=== PATIENT | male | born 1965 | race Caucasian/White ===

== ENCOUNTER 2016-08-21 14:47 | Inpatient (IN) | payer MEDICARE, MEDICAID ==
[~2016-08-21] VITALS: Ht 167.6 cm; Wt 97.6 kg
[~2016-08-21 14:47] MED LIST: DIVA500T35 PO; FLUO-191 PO; QUET200T PO
[2016-08-21 15:23] VITALS: BP 124/91
[2016-08-21] MEDS ORDERED: ZOLPIDEM TARTRATE 10 MG TABLET PO PRN (15:30)
[2016-08-21] MEDS ORDERED: HALOPERIDOL 5 MG TABLET PO PRN (15:30)
[2016-08-21] MEDS ORDERED: LORazepam 2 MG/ML VIAL IM ONE (16:00)
[2016-08-21] MEDS ORDERED: DiphenhydrAMINE HCL 50 MG/ML VIAL IM ONE (16:00)
[2016-08-21] MEDS ORDERED: INFLUENZA VIRUS VACCINE QVS 2016-17 (3YR+)/PF 60 MCG/0.5 ML SYRINGE IM ONE (16:00)
[2016-08-21] MEDS ORDERED: HALOPERIDOL LACTATE 5 MG/ML VIAL IM ONE (16:00)
[2016-08-21] MEDS ORDERED: CLON1 PO (16:05)
[2016-08-21] MEDS ORDERED: QUET100T PO (16:05)
[2016-08-21] MEDS ORDERED: QUET300T2 PO (16:05)
[2016-08-21] MEDS ORDERED: HALO5 PO (16:05)
[2016-08-21] MEDS ORDERED: BENZ1TAB10 PO (16:05)
[2016-08-21] MEDS ORDERED: DIVA500T35 PO (16:05)
[2016-08-21 16:30] VITALS: BP 106/70
[2016-08-21] MEDS: BENZTROPINE MESYLATE 1 MG TABLET PO SCH (17:00)
[2016-08-21] MEDS: DIVALPROEX SODIUM 500 MG DR TABLET PO SCH (17:00)
[2016-08-21] MEDS: QUEtiapine FUMARATE 200 MG TABLET PO SCH (17:00)
[2016-08-21] MEDS: HALOPERIDOL 5 MG TABLET PO SCH (21:51)
[2016-08-21] MEDS: ClonazePAM 1 MG TABLET PO SCH (21:51)
[2016-08-21] MEDS: QUEtiapine FUMARATE 300 MG TABLET PO SCH (21:51)
[2016-08-22 03:03] VITALS: BP 109/72
[2016-08-22 08:31] LABS: BASOPHILS % (AUTO) 0.7 % (0.0-2.0); EOSINOPHILS % (AUTO) 3.3 % (1.0-6.0); HEMATOCRIT 44.8 % (41-53); HEMOGLOBIN 14.7 g/dL (13.5-17.5); LYMPHOCYTES # (AUTO) 2.2 K/uL (1.0-4.8); LYMPHOCYTES % (AUTO) 39.1 % (22.0-44.0); MEAN CORPUSCULAR HEMOGLOBIN 29.8 pg (26.0-34.0); MEAN CORPUSCULAR HGB CONC 32.8 G/dL (31.0-37.0); MEAN CORPUSCULAR VOLUME 91 fL (80-100); MONOCYTES # (AUTO) 0.8 K/uL (0.1-1.0); MONOCYTES % (AUTO) 13.6 % (2.0-9.0); NEUTROPHILS # (AUTO) 2.4 K/uL (1.8-7.7); NEUTROPHILS % (AUTO) 43.3 % (40.0-70.0); PLATELET COUNT (AUTO) 273 K/uL (150-450); RED BLOOD CELL COUNT(AUTO) 4.94 MIL/uL (4.50-5.90); RED CELL DISTRIBUTION WIDTH 12.8 % (11.5-14.5); WHITE BLOOD COUNT (AUTO) 5.6 K/uL (4.5-11.0)
[2016-08-22] MEDS: DIVALPROEX SODIUM 500 MG DR TABLET PO SCH ×2 (08:35→16:20)
[2016-08-22] MEDS: QUEtiapine FUMARATE 200 MG TABLET PO SCH ×2 (08:35→16:20)
[2016-08-22] MEDS: BENZTROPINE MESYLATE 1 MG TABLET PO SCH ×2 (08:35→16:20)
[2016-08-22 08:42] VITALS: BP 103/64
[2016-08-22 08:55] LABS: ALANINE AMINOTRANSFERASE 39 U/L (12-78); ALBUMIN 3.5 g/dL (3.4-5.0); ANION GAP 10 mmol/L (8-16); ASPARTATE AMINOTRANSFERASE 24 U/L (15-37); BILIRUBIN,TOTAL 0.4 mg/dL (0.1-1.0); CALCIUM, TOTAL 8.5 mg/dL (8.8-10.5); CARBON DIOXIDE 25 mmol/L (22-29); CHLORIDE 107 mmol/L (98-107); CREATININE 1.01 mg/dL (0.60-1.30); GLOMERULAR FILTR. RATE CALC > 60 mL/min (>60); POTASSIUM 4.1 mmol/L (3.5-5.1); SODIUM SERUM 142 mmol/L (136-145); TOTAL PROTEIN, SERUM 6.7 g/dL (6.4-8.2); UREA NITROGEN, BLOOD 16 mg/dL (7-18)
[2016-08-22] MEDS ORDERED: MAGNESIUM HYDROXIDE SUSPENSION 30 ML UDCUP PO PRN (09:00)
[2016-08-22] MEDS ORDERED: LOPERAMIDE HCL 2 MG CAPSULE PO PRN (09:00)
[2016-08-22] MEDS ORDERED: ONDANSETRON HCL 4 MG TABLET PO PRN (09:00)
[2016-08-22] MEDS ORDERED: PETROLATUM,WHITE 71 GM JELLY TP PRN (09:00)
[2016-08-22] MEDS ORDERED: ALBUTEROL SULFATE HFA 90 MCG/PUFF 8 GM INHALER IH PRN (09:00)
[2016-08-22] MEDS ORDERED: BACITRACIN 28.4 GM OINTMENT TP PRN (09:00)
[2016-08-22] MEDS ORDERED: CloNIDine HCL 0.1 MG TABLET PO PRN (09:00)
[2016-08-22] MEDS ORDERED: BENZOCAINE/MENTHOL LOZENGE MM PRN (09:00)
[2016-08-22] MEDS ORDERED: MAG HYDROX/AL HYDROX/SIMETH ES 30 ML SUSPENSION UDCUP PO PRN (09:00)
[2016-08-22] MEDS ORDERED: ACETAMINOPHEN 325 MG TABLET PO PRN (09:00)
[2016-08-22 16:00] VITALS: BP 108/64
[2016-08-22] MEDS: QUEtiapine FUMARATE 300 MG TABLET PO SCH (20:26)
[2016-08-22] MEDS: ClonazePAM 1 MG TABLET PO SCH (20:26)
[2016-08-22] MEDS: HALOPERIDOL 5 MG TABLET PO SCH (20:27)
[2016-08-23 06:25] VITALS: BP 121/68
[2016-08-23 08:34] VITALS: BP 124/65
[2016-08-23] MEDS: BENZTROPINE MESYLATE 1 MG TABLET PO SCH ×2 (08:34→16:30)
[2016-08-23] MEDS: QUEtiapine FUMARATE 200 MG TABLET PO SCH ×2 (08:34→16:30)
[2016-08-23] MEDS: DIVALPROEX SODIUM 500 MG DR TABLET PO SCH ×2 (08:36→16:30)
[2016-08-23 16:00] VITALS: BP 115/75
[2016-08-23] MEDS: IBUPROFEN 600 MG TABLET PO PRN (19:06)
[2016-08-23] MEDS: HALOPERIDOL 5 MG TABLET PO SCH (21:02)
[2016-08-23] MEDS: QUEtiapine FUMARATE 300 MG TABLET PO SCH (21:03)
[2016-08-23] MEDS: ClonazePAM 1 MG TABLET PO SCH (21:03)
[2016-08-24 02:20] VITALS: BP 120/75
[2016-08-24 08:02] VITALS: BP 119/71
[2016-08-24] MEDS: QUEtiapine FUMARATE 200 MG TABLET PO SCH ×2 (09:08→16:08)
[2016-08-24] MEDS: BENZTROPINE MESYLATE 1 MG TABLET PO SCH ×2 (09:08→16:07)
[2016-08-24] MEDS: DIVALPROEX SODIUM 500 MG DR TABLET PO SCH ×2 (09:09→16:08)
[2016-08-24] MEDS: IBUPROFEN 600 MG TABLET PO PRN (12:00)
[2016-08-24 16:07] VITALS: BP 117/78
[2016-08-24] MEDS ORDERED: QUET100T33 PO (17:39)
[2016-08-24] MEDS ORDERED: QUET200T PO (17:42)
[2016-08-24] MEDS: ClonazePAM 1 MG TABLET PO SCH (20:07)
[2016-08-24] MEDS: HALOPERIDOL 5 MG TABLET PO SCH (20:07)
[2016-08-24] MEDS: QUEtiapine FUMARATE 300 MG TABLET PO SCH (20:07)
== END 2016-08-24 21:16 | disposition home or self-care (01) | DRG 885 ==
LOC: B2S 15:38 → EDSTATUS 15:44
PROVIDERS: ADMIT Psychiatry & Neurology Psychiatry; ATTEND Psychiatry & Neurology Psychiatry
DX: F20.0 Paranoid schizophrenia (principal); R45.851 Suicidal ideations; I10 Essential (primary) hypertension; J44.9 Chronic obstructive pulmonary disease, unspecified; M19.90 Unspecified osteoarthritis, unspecified site; K21.9 Gastro-esophageal reflux disease without esophagitis; E66.9 Obesity, unspecified; F17.210 Nicotine dependence, cigarettes, uncomplicated; G47.00 Insomnia, unspecified; F12.90 Cannabis use, unspecified, uncomplicated; Z71.6 Tobacco abuse counseling; Z98.890 Other specified postprocedural states; Z72.89 Other problems related to lifestyle; Z28.21 Immunization not carried out because of patient refusal; Z68.34 Body mass index [BMI] 34.0-34.9, adult; Z79.899 Other long term (current) drug therapy
CPT/HCPCS: 90471; J1200; J1630; J2060; Q0162

== ENCOUNTER 2018-08-24 00:01 | Emergency (ER) | payer MEDICARE, MEDICAID ==
[~2018-08-24] VITALS: Ht 167.6 cm; Wt 98.2 kg
[2018-08-24] MEDS ORDERED: QUET25TA PO (00:24)
[2018-08-24] MEDS ORDERED: MORPHINE SULFATE 4 MG/ML SYRINGE IVP ONE (02:00)
[2018-08-24] MEDS ORDERED: FentaNYL CITRATE-PF 100 MCG/2 ML VIAL IVP ONE (02:15)
[2018-08-24] MEDS ORDERED: MIDAZOLAM HCL 5 MG/ML VIAL IVP ONE (02:15)
[2018-08-24] MEDS ORDERED: SODIUM CHLORIDE 0.9% 1,000 ML IV ONE (02:16)
[2018-08-24 04:05] VITALS: BP 143/91
== END 2018-08-24 04:20 | disposition home or self-care (01) ==
LOC: EMS 00:03
DX: S63.253A Unspecified dislocation of left middle finger, initial encounter (principal); S63.255A Unspecified dislocation of left ring finger, initial encounter; F31.9 Bipolar disorder, unspecified; F20.9 Schizophrenia, unspecified; F17.210 Nicotine dependence, cigarettes, uncomplicated; Z79.899 Other long term (current) drug therapy; W01.0XXA Fall on same level from slipping, tripping and stumbling without subsequent striking against object, initial encounter; Y93.89 Activity, other specified; Y92.89 Other specified places as the place of occurrence of the external cause; Y99.8 Other external cause status
CPT/HCPCS: 26770; 73130; 93005; 99152; 99153; 99285; J2250; J3010; J7030

== ENCOUNTER 2018-11-28 23:44 | Emergency (ER) | payer MEDICARE, MEDICAID ==
[~2018-11-28] VITALS: Ht 170.2 cm; Wt 90.9 kg
[~2018-11-28 23:44] MED LIST changes: -DIVA500T35 PO; -FLUO-191 PO; -QUET200T PO; +QUET25TA PO
[2018-11-29 01:55] LABS: GLUCOSE,POINT OF CARE 97 MG/DL (70-110)
[2018-11-29 02:51] LABS: ANION GAP 12 mmol/L (8-16); CALCIUM, TOTAL 9.3 mg/dL (8.8-10.5); CARBON DIOXIDE 25 mmol/L (22-29); CHLORIDE 103 mmol/L (98-107); CREATININE 1.16 mg/dL (0.60-1.30); GLOMERULAR FILTR. RATE CALC > 60 mL/min (>60); GLUCOSE,RANDOM 92 mg/dL (70-110); POTASSIUM 3.6 mmol/L (3.5-5.1); SODIUM SERUM 140 mmol/L (136-145); UREA NITROGEN, BLOOD 15 mg/dL (7-18)
[2018-11-29 02:58] LABS: ALANINE AMINOTRANSFERASE 27 U/L (12-78); ALBUMIN 3.8 g/dL (3.4-5.0); ALKALINE PHOSPHATASE 61 U/L (46-116); ASPARTATE AMINOTRANSFERASE 25 U/L (15-37); BILIRUBIN,TOTAL 0.5 mg/dL (0.1-1.0); TOTAL PROTEIN, SERUM 7.3 g/dL (6.4-8.2)
[2018-11-29 03:00] LABS: BASOPHILS % (AUTO) 0.7 % (0.0-2.0); EOSINOPHILS % (AUTO) 2.2 % (1.0-6.0); HEMATOCRIT 39.9 % (41-53); HEMOGLOBIN 13.6 g/dL (13.5-17.5); LYMPHOCYTES # (AUTO) 1.6 K/uL (1.0-4.8); LYMPHOCYTES % (AUTO) 28.2 % (22.0-44.0); MEAN CORPUSCULAR VOLUME 88 fL (80-100); MONOCYTES # (AUTO) 1.2 K/uL (0.1-1.0); MONOCYTES % (AUTO) 21.6 % (2.0-9.0); NEUTROPHILS # (AUTO) 2.6 K/uL (1.8-7.7); NEUTROPHILS % (AUTO) 47.3 % (40.0-70.0); PLATELET COUNT (AUTO) 331 K/uL (150-450); RED BLOOD CELL COUNT(AUTO) 4.52 MIL/uL (4.50-5.90); RED CELL DISTRIBUTION WIDTH 13.7 % (11.5-14.5)
[2018-11-29] MEDS ORDERED: SODIUM CHLORIDE 0.9% 1,000 ML IV ONE (04:00)
[2018-11-29 04:46] VITALS: BP 132/82
== END 2018-11-29 05:50 | disposition home or self-care (01) ==
LOC: EMS 23:47
DX: R41.82 Altered mental status, unspecified (principal); F25.9 Schizoaffective disorder, unspecified; F15.10 Other stimulant abuse, uncomplicated; F31.9 Bipolar disorder, unspecified; F17.210 Nicotine dependence, cigarettes, uncomplicated
CPT/HCPCS: 36415; 70450; 80053; 82140; 82962; 85025; 96360; 99284; G0480; J7030; 51701

== ENCOUNTER 2018-12-13 11:31 | Inpatient (IN) | payer MEDICARE, MEDICAID ==
[~2018-12-13] VITALS: Ht 170.2 cm; Wt 75.0 kg
[2018-12-13] MEDS ORDERED: DIPH25TA2 PO (11:43)
[2018-12-13] MEDS ORDERED: SLEEPING PO (12:09)
[2018-12-13] MEDS ORDERED: PHENAZOPYRIDINE HCL 100 MG TABLET PO ONE (12:45)
[2018-12-13 13:20] LABS: BASOPHILS % (AUTO) 0.2 % (0.0-2.0); EOSINOPHILS % (AUTO) 0.1 % (1.0-6.0); HEMATOCRIT 43.6 % (41-53); HEMOGLOBIN 14.7 g/dL (13.5-17.5); LYMPHOCYTES # (AUTO) 0.7 K/uL (1.0-4.8); LYMPHOCYTES % (AUTO) 3.5 % (22.0-44.0); MEAN CORPUSCULAR HEMOGLOBIN 29.8 pg (26.0-34.0); MEAN CORPUSCULAR HGB CONC 33.7 G/dL (31.0-37.0); MEAN CORPUSCULAR VOLUME 88 fL (80-100); MONOCYTES # (AUTO) 2.2 K/uL (0.1-1.0); MONOCYTES % (AUTO) 11.1 % (2.0-9.0); NEUTROPHILS # (AUTO) 16.7 K/uL (1.8-7.7); NEUTROPHILS % (AUTO) 85.1 % (40.0-70.0); PLATELET COUNT (AUTO) 273 K/uL (150-450); RED BLOOD CELL COUNT(AUTO) 4.94 MIL/uL (4.50-5.90); RED CELL DISTRIBUTION WIDTH 13.4 % (11.5-14.5)
[2018-12-13 13:21] LABS: APPEARANCE,URINE CLOUDY (CLEAR); GLUCOSE, URINE (UA) NEGATIVE (NEGATIVE); KETONES,URINE 15 mg/dL (NEGATIVE); LEUKOCYTE ESTERASE ,URINE LARGE (NEGATIVE); NITRATE,URINE POSITIVE (NEGATIVE); OCCULT BLOOD,URINE LARGE (NEGATIVE); PH,URINE 6.5 (5.0-8.0); PROTEIN,URINE SEE CONFIRM (NEGATIVE)
[2018-12-13 13:22] LABS: BILIRUBIN,URINE PRELIM. POSITIVE (NEGATIVE)
[2018-12-13 13:30] LABS: SULFOSALICYLIC ACID,URINE 1+ (Negative)
[2018-12-13 13:31] LABS: BACTERIA,URINE Many /HPF (None Seen); RBC,URINE 26-50 /HPF (0-2); SQUAMOUS EPITHELIAL CELL,UR Many /LPF (None Seen); WBC,URINE 51-100 /HPF (0-5)
[2018-12-13 13:34] LABS: CALCIUM, TOTAL 9.6 mg/dL (8.8-10.5); CREATININE 1.31 mg/dL (0.60-1.30)
[2018-12-13 13:42] LABS: ALBUMIN 3.7 g/dL (3.4-5.0); BILIRUBIN,TOTAL 0.6 mg/dL (0.1-1.0); TOTAL PROTEIN, SERUM 7.9 g/dL (6.4-8.2)
[2018-12-13] MEDS ORDERED: SODIUM CHLORIDE 0.9% 2,250 ML IV ONE (14:00)
[2018-12-13] MEDS ORDERED: CefTRIAXone 1 GM/DEXTROSE 50 ML IV ONE (14:00)
[2018-12-13] MEDS ORDERED: 0.9% SODIUM CHLORIDE 10 ML SYRINGE IVP PRN (14:15)
[2018-12-13] MEDS ORDERED: ACETAMINOPHEN 325 MG TABLET PO PRN (14:15)
[2018-12-13] MEDS ORDERED: MAGNESIUM HYDROXIDE SUSPENSION 30 ML UDCUP PO PRN (14:15)
[2018-12-13] MEDS ORDERED: ONDANSETRON HCL 4 MG/2 ML VIAL IVP PRN (14:15)
[2018-12-13 15:00] LABS: LACTIC ACID 2.4 mmol/L (0.4-2.0)
[2018-12-13] MEDS ORDERED: ACETAMINOPHEN 500 MG TABLET PO ONE (15:30)
[2018-12-13 16:59] VITALS: BP 124/74
[2018-12-13 19:37] VITALS: BP 139/75
[2018-12-13] MEDS: DOCUSATE SODIUM 100 MG CAPSULE PO SCH (20:03)
[2018-12-14] VITALS (7 sets, daily range): BP systolic 101–117; BP diastolic 55–77
[2018-12-14] MEDS: ACETAMINOPHEN 325 MG TABLET PO PRN ×4 (00:32→20:59)
[2018-12-14 06:08] LABS: BASOPHILS % (AUTO) 0.2 % (0.0-2.0); EOSINOPHILS % (AUTO) 0.2 % (1.0-6.0); HEMATOCRIT 42.2 % (41-53); HEMOGLOBIN 13.9 g/dL (13.5-17.5); LYMPHOCYTES # (AUTO) 1.4 K/uL (1.0-4.8); LYMPHOCYTES % (AUTO) 7.7 % (22.0-44.0); MEAN CORPUSCULAR HEMOGLOBIN 29.4 pg (26.0-34.0); MEAN CORPUSCULAR HGB CONC 32.9 G/dL (31.0-37.0); MEAN CORPUSCULAR VOLUME 89 fL (80-100); MONOCYTES # (AUTO) 2.1 K/uL (0.1-1.0); MONOCYTES % (AUTO) 11.6 % (2.0-9.0); NEUTROPHILS # (AUTO) 14.6 K/uL (1.8-7.7); NEUTROPHILS % (AUTO) 80.3 % (40.0-70.0); PLATELET COUNT (AUTO) 248 K/uL (150-450); RED BLOOD CELL COUNT(AUTO) 4.72 MIL/uL (4.50-5.90); RED CELL DISTRIBUTION WIDTH 13.6 % (11.5-14.5)
[2018-12-14 06:37] LABS: ALANINE AMINOTRANSFERASE 17 U/L (12-78); ALBUMIN 3.1 g/dL (3.4-5.0); ALKALINE PHOSPHATASE 70 U/L (46-116); ANION GAP 13 mmol/L (8-16); ASPARTATE AMINOTRANSFERASE 10 U/L (15-37); BILIRUBIN,TOTAL 0.7 mg/dL (0.1-1.0); CALCIUM, TOTAL 9.2 mg/dL (8.8-10.5); CARBON DIOXIDE 24 mmol/L (22-29); CHLORIDE 101 mmol/L (98-107); CREATININE 1.09 mg/dL (0.60-1.30); GLOMERULAR FILTR. RATE CALC > 60 mL/min (>60); GLUCOSE,RANDOM 76 mg/dL (70-110); POTASSIUM 3.4 mmol/L (3.5-5.1); SODIUM SERUM 138 mmol/L (136-145); UREA NITROGEN, BLOOD 9 mg/dL (7-18)
[2018-12-14] MEDS: DOCUSATE SODIUM 100 MG CAPSULE PO SCH ×2 (08:18→20:58)
[2018-12-14] MEDS ORDERED: POTASSIUM CHLORIDE 20 MEQ ER TABLET PO PRN (10:00)
[2018-12-14] MEDS ORDERED: POTASSIUM CHL 10 MEQ/WATER 50 ML IV PRN (10:00)
[2018-12-14] MEDS ORDERED: SODIUM CHLORIDE 0.9% 1,000 ML IV ONE (10:00)
[2018-12-14] MEDS: CefTRIAXone 1 GM/DEXTROSE 50 ML IV SCH (14:44)
[2018-12-14 19:54] LABS: APPEARANCE,URINE CLEAR (CLEAR); BILIRUBIN,URINE NEGATIVE (NEGATIVE); GLUCOSE, URINE (UA) NEGATIVE (NEGATIVE); KETONES,URINE NEGATIVE (NEGATIVE); LEUKOCYTE ESTERASE ,URINE NEGATIVE (NEGATIVE); NITRATE,URINE NEGATIVE (NEGATIVE); OCCULT BLOOD,URINE NEGATIVE (NEGATIVE); PROTEIN,URINE TRACE (NEGATIVE)
[2018-12-15] MEDS: ACETAMINOPHEN 325 MG TABLET PO PRN ×2 (00:25→20:28)
[2018-12-15 04:25] VITALS: BP 106/79
[2018-12-15 06:19] LABS: BASOPHILS % (AUTO) 0.2 % (0.0-2.0); EOSINOPHILS % (AUTO) 0.8 % (1.0-6.0); HEMATOCRIT 39.7 % (41-53); HEMOGLOBIN 13.2 g/dL (13.5-17.5); LYMPHOCYTES # (AUTO) 1.4 K/uL (1.0-4.8); LYMPHOCYTES % (AUTO) 9.3 % (22.0-44.0); MEAN CORPUSCULAR HEMOGLOBIN 29.4 pg (26.0-34.0); MEAN CORPUSCULAR HGB CONC 33.2 G/dL (31.0-37.0); MEAN CORPUSCULAR VOLUME 89 fL (80-100); MONOCYTES # (AUTO) 2.9 K/uL (0.1-1.0); MONOCYTES % (AUTO) 19.5 % (2.0-9.0); NEUTROPHILS # (AUTO) 10.4 K/uL (1.8-7.7); NEUTROPHILS % (AUTO) 70.2 % (40.0-70.0); PLATELET COUNT (AUTO) 240 K/uL (150-450); RED BLOOD CELL COUNT(AUTO) 4.48 MIL/uL (4.50-5.90); RED CELL DISTRIBUTION WIDTH 13.3 % (11.5-14.5)
[2018-12-15 06:25] LABS: ANION GAP 10 mmol/L (8-16); CALCIUM, TOTAL 9.2 mg/dL (8.8-10.5); CARBON DIOXIDE 30 mmol/L (22-29); CHLORIDE 102 mmol/L (98-107); CREATININE 1.09 mg/dL (0.60-1.30); GLOMERULAR FILTR. RATE CALC > 60 mL/min (>60); GLUCOSE,RANDOM 105 mg/dL (70-110); SODIUM SERUM 142 mmol/L (136-145); UREA NITROGEN, BLOOD 9 mg/dL (7-18)
[2018-12-15 08:00] VITALS: BP 99/54
[2018-12-15] MEDS: DOCUSATE SODIUM 100 MG CAPSULE PO SCH ×2 (08:01→20:28)
[2018-12-15] MEDS ORDERED: SODIUM CHLORIDE 0.9% 1,000 ML IV ONE (11:15)
[2018-12-15 11:35] VITALS: BP 95/55
[2018-12-15] MEDS: CefTRIAXone 1 GM/DEXTROSE 50 ML IV SCH (14:44)
[2018-12-15 15:59] VITALS: BP 109/64
[2018-12-15 19:35] VITALS: BP 117/69
[2018-12-15] MEDS ORDERED: ZOLPIDEM TARTRATE 10 MG TABLET PO PRN (22:00)
[2018-12-16 04:15] VITALS: BP 137/91
[2018-12-16 06:34] LABS: BASOPHILS % (AUTO) 0.6 % (0.0-2.0); EOSINOPHILS % (AUTO) 0.9 % (1.0-6.0); HEMATOCRIT 39.6 % (41-53); HEMOGLOBIN 13.2 g/dL (13.5-17.5); LYMPHOCYTES # (AUTO) 0.6 K/uL (1.0-4.8); LYMPHOCYTES % (AUTO) 8.1 % (22.0-44.0); MEAN CORPUSCULAR HEMOGLOBIN 29.5 pg (26.0-34.0); MEAN CORPUSCULAR HGB CONC 33.3 G/dL (31.0-37.0); MEAN CORPUSCULAR VOLUME 89 fL (80-100); MONOCYTES # (AUTO) 1.6 K/uL (0.1-1.0); NEUTROPHILS # (AUTO) 5.5 K/uL (1.8-7.7); NEUTROPHILS % (AUTO) 70.4 % (40.0-70.0); PLATELET COUNT (AUTO) 259 K/uL (150-450); RED BLOOD CELL COUNT(AUTO) 4.47 MIL/uL (4.50-5.90); RED CELL DISTRIBUTION WIDTH 13.1 % (11.5-14.5)
[2018-12-16 06:48] LABS: ANION GAP 12 mmol/L (8-16); CALCIUM, TOTAL 9.1 mg/dL (8.8-10.5); CARBON DIOXIDE 24 mmol/L (22-29); CHLORIDE 104 mmol/L (98-107); GLOMERULAR FILTR. RATE CALC > 60 mL/min (>60); GLUCOSE,RANDOM 93 mg/dL (70-110); POTASSIUM 3.8 mmol/L (3.5-5.1); SODIUM SERUM 140 mmol/L (136-145); UREA NITROGEN, BLOOD 9 mg/dL (7-18)
[2018-12-16] MEDS: DOCUSATE SODIUM 100 MG CAPSULE PO SCH (07:47)
[2018-12-16 07:57] VITALS: BP 117/78
[2018-12-16] MEDS ORDERED: CIPR-278 PO (10:11)
== END 2018-12-16 12:38 | disposition home or self-care (01) | DRG 872 ==
LOC: EMS 11:32 → 4E 15:26
PROVIDERS: ADMIT Internal Medicine; ATTEND Internal Medicine
DX: A41.51 Sepsis due to Escherichia coli [E. coli] (principal); N39.0 Urinary tract infection, site not specified; B96.20 Unspecified Escherichia coli [E. coli] as the cause of diseases classified elsewhere; F20.9 Schizophrenia, unspecified; F32.9 Major depressive disorder, single episode, unspecified; R00.0 Tachycardia, unspecified; F17.210 Nicotine dependence, cigarettes, uncomplicated; E87.6 Hypokalemia; Z79.899 Other long term (current) drug therapy
CPT/HCPCS: 83605; 84132; 87040; 87086; G0378; J0696; J7030

== ENCOUNTER 2019-02-13 23:25 | Emergency (ER) | payer MEDICARE, MEDICAID ==
[~2019-02-13] VITALS: Ht 182.9 cm; Wt 90.9 kg
[~2019-02-13 23:25] MED LIST changes: +CIPR-278 PO
[2019-02-13] MEDS ORDERED: OMEP20 PO (23:45)
[2019-02-13] MEDS ORDERED: BENZ2TAB10 PO (23:45)
[2019-02-13] MEDS ORDERED: DIVA-78 PO (23:45)
[2019-02-13] MEDS ORDERED: QUET300T2 PO (23:45)
[2019-02-13] MEDS ORDERED: PROP10TA73 PO (23:45)
[2019-02-13 23:51] LABS: BASOPHILS % (AUTO) 0.6 % (0.0-2.0); EOSINOPHILS % (AUTO) 2.3 % (1.0-6.0); HEMATOCRIT 38.2 % (41-53); LYMPHOCYTES # (AUTO) 1.2 K/uL (1.0-4.8); LYMPHOCYTES % (AUTO) 18.8 % (22.0-44.0); MEAN CORPUSCULAR HEMOGLOBIN 29.8 pg (26.0-34.0); MEAN CORPUSCULAR HGB CONC 34.1 G/dL (31.0-37.0); MEAN CORPUSCULAR VOLUME 88 fL (80-100); MONOCYTES # (AUTO) 0.8 K/uL (0.1-1.0); MONOCYTES % (AUTO) 13.2 % (2.0-9.0); NEUTROPHILS # (AUTO) 4.1 K/uL (1.8-7.7); NEUTROPHILS % (AUTO) 65.1 % (40.0-70.0); PLATELET COUNT (AUTO) 264 K/uL (150-450); RED BLOOD CELL COUNT(AUTO) 4.36 MIL/uL (4.50-5.90); RED CELL DISTRIBUTION WIDTH 13.8 % (11.5-14.5)
[2019-02-13 23:59] LABS: ANION GAP 9 mmol/L (8-16); CALCIUM, TOTAL 9.1 mg/dL (8.8-10.5); CARBON DIOXIDE 26 mmol/L (22-29); CHLORIDE 104 mmol/L (98-107); CREATININE 0.98 mg/dL (0.60-1.30); GLOMERULAR FILTR. RATE CALC > 60 mL/min (>60); GLUCOSE,RANDOM 96 mg/dL (70-110); POTASSIUM 3.8 mmol/L (3.5-5.1); SODIUM SERUM 139 mmol/L (136-145); UREA NITROGEN, BLOOD 10 mg/dL (7-18)
[2019-02-14 00:05] LABS: ALANINE AMINOTRANSFERASE 20 U/L (12-78); ALBUMIN 3.6 g/dL (3.4-5.0); ALKALINE PHOSPHATASE 61 U/L (46-116); ASPARTATE AMINOTRANSFERASE 14 U/L (15-37); BILIRUBIN,TOTAL 0.5 mg/dL (0.1-1.0); TOTAL PROTEIN, SERUM 6.8 g/dL (6.4-8.2); VALPROIC ACID 73 mcg/mL (50-100)
[2019-02-14 05:12] VITALS: BP 96/56
== END 2019-02-14 05:55 | disposition home or self-care (01) ==
LOC: EMS 23:29
DX: T43.591A Poisoning by other antipsychotics and neuroleptics, accidental (unintentional), initial encounter (principal); F31.9 Bipolar disorder, unspecified; F20.9 Schizophrenia, unspecified; F17.210 Nicotine dependence, cigarettes, uncomplicated; Z79.899 Other long term (current) drug therapy; Y92.89 Other specified places as the place of occurrence of the external cause
CPT/HCPCS: 36415; 70450; 80053; 80164; 84484; 85025; 93005; 99284; 99406; G0480

== ENCOUNTER 2019-12-15 19:11 | Emergency (ER) | payer MEDICARE, MEDICAID ==
[~2019-12-15] VITALS: Ht 167.6 cm; Wt 86.4 kg
[~2019-12-15 19:11] MED LIST changes: -CIPR-278 PO; +PROP10TA73 PO; +QUET200T PO; -QUET25TA PO
[2019-12-15] MEDS ORDERED: MORPHINE SULFATE 4 MG/ML SYRINGE IM ONE (20:45)
[2019-12-15] MEDS ORDERED: KETOROLAC TROMETHAMINE 30 MG/ML VIAL IM ONE (20:45)
[2019-12-15 23:00] VITALS: BP 116/77
== END 2019-12-15 23:01 | disposition home or self-care (01) ==
LOC: EMS 19:13
DX: S42.211A Unspecified displaced fracture of surgical neck of right humerus, initial encounter for closed fracture (principal); F31.9 Bipolar disorder, unspecified; F20.9 Schizophrenia, unspecified; F17.210 Nicotine dependence, cigarettes, uncomplicated; W01.0XXA Fall on same level from slipping, tripping and stumbling without subsequent striking against object, initial encounter; Y93.89 Activity, other specified; Y92.89 Other specified places as the place of occurrence of the external cause; Y99.8 Other external cause status
CPT/HCPCS: 73030; 73060; 73110; 73200; 96372; 99284; J1885; J2270

== ENCOUNTER 2020-05-12 17:12 | Emergency (ER) | payer MEDICAID, MEDICARE ==
[~2020-05-12] VITALS: Ht 172.7 cm; Wt 84.1 kg
[2020-05-12 17:26] VITALS: BP 149/89
== END 2020-05-12 18:35 | disposition left against medical advice (07) ==
LOC: EMS 17:12
DX: R50.9 Fever, unspecified (principal); R05 Cough; Z53.21 Procedure and treatment not carried out due to patient leaving prior to being seen by health care provider

== ENCOUNTER 2021-11-21 18:14 | Inpatient (IN) | payer MEDICARE, OTHER ==
[~2021-11-21] VITALS: Ht 167.6 cm; Wt 102.2 kg
[2021-11-21] MEDS ORDERED: NALOXONE HCL 1 MG/ML 2 ML SYRINGE IVP ONE ×2 (18:30→19:00)
[2021-11-21 18:53] LABS: COVID AG,FIA SOURCE NASOPHARYNGEAL
[2021-11-21 18:57] LABS: HEMATOCRIT 43.3 % (41-53); HEMOGLOBIN 14.6 g/dL (13.5-17.5); LYMPHOCYTES # (AUTO) 1.8 K/uL (1.0-4.8); LYMPHOCYTES % (AUTO) 34.3 % (22.0-44.0); MEAN CORPUSCULAR HEMOGLOBIN 30.2 pg (26.0-34.0); MEAN CORPUSCULAR HGB CONC 33.7 G/dL (31.0-37.0); MEAN CORPUSCULAR VOLUME 90 fL (80-100); MONOCYTES % (AUTO) 19.9 % (2.0-9.0); NEUTROPHILS # (AUTO) 2.2 K/uL (1.8-7.7); NEUTROPHILS % (AUTO) 41.8 % (40.0-70.0); PLATELET COUNT (AUTO) 265 K/uL (150-450); RED BLOOD CELL COUNT(AUTO) 4.82 MIL/uL (4.50-5.90); RED CELL DISTRIBUTION WIDTH 13.9 % (11.5-14.5)
[2021-11-21] MEDS ORDERED: NALOXONE HCL 10 MG in DEXTROSE 5%-WATER 240 ML IV PRN (19:00)
[2021-11-21 19:12] LABS: ANION GAP 13 mmol/L (8-16); CALCIUM, TOTAL 8.6 mg/dL (8.8-10.5); CARBON DIOXIDE 25 mmol/L (22-29); CHLORIDE 105 mmol/L (98-107); CREATININE 1.03 mg/dL (0.60-1.30); GLUCOSE,RANDOM 98 mg/dL (70-110); POTASSIUM 3.7 mmol/L (3.5-5.1); SODIUM SERUM 143 mmol/L (136-145); UREA NITROGEN, BLOOD 8 mg/dL (7-18)
[2021-11-21 19:14] LABS: GLOMERULAR FILTR. RATE CALC > 60 mL/min (>60)
[2021-11-21 19:19] LABS: ALANINE AMINOTRANSFERASE 70 U/L (12-78); ALBUMIN 3.8 g/dL (3.4-5.0); ALKALINE PHOSPHATASE 102 U/L (46-116); ASPARTATE AMINOTRANSFERASE 39 U/L (15-37); BILIRUBIN,TOTAL 0.2 mg/dL (0.1-1.0); CREATINE KINASE, TOTAL ONLY 198 U/L (39-308); PHOSPHORUS 4.7 mg/dL (2.5-4.9); TOTAL PROTEIN, SERUM 7.3 g/dL (6.4-8.2)
[2021-11-21 19:21] LABS: B-TYPE NATRIURETIC PEPTIDE < 5 pg/mL (0-100)
[2021-11-21 20:29] LABS: APPEARANCE,URINE CLEAR (CLEAR); BILIRUBIN,URINE NEGATIVE (NEGATIVE); GLUCOSE, URINE (UA) NEGATIVE (NEGATIVE); LEUKOCYTE ESTERASE ,URINE NEGATIVE (NEGATIVE); NITRATE,URINE NEGATIVE (NEGATIVE); OCCULT BLOOD,URINE TRACE (NEGATIVE); PH,URINE 5.5 (5.0-8.0); PROTEIN,URINE 30-70 mg/dL (NEGATIVE); SPECIFIC GRAVITIY, URINE 1.012 (1.003-1.030); UROBILINOGEN,URINE <=1.0 mg/dL (<=1.0)
[2021-11-21] MEDS ORDERED: ONDANSETRON HCL 4 MG/2 ML VIAL IVP ONE (20:30)
[2021-11-21 20:35] LABS: AMPHET/METH SCREEN,URINE NEGATIVE (NEGATIVE); BARBITURATE SCREEN, URINE NEGATIVE (NEGATIVE); BENZODIAZEPINES SCREEN,URINE NEGATIVE (NEGATIVE); CANNABINOID SCREEN,URINE NEGATIVE (NEGATIVE); COCAINE SCREEN,URINE NEGATIVE (NEGATIVE); METHADONE SCREEN, URINE NEGATIVE (NEGATIVE); OPIATE SCREEN,URINE NEGATIVE (NEGATIVE)
[2021-11-21 20:37] LABS: PHENCYCLIDINE SCREEN,URINE NEGATIVE (NEGATIVE)
[2021-11-21 20:43] LABS: BACTERIA,URINE None Seen /HPF (None Seen); RBC,URINE 0-2 /HPF (0-2); WBC,URINE 0-2 /HPF (0-5)
[2021-11-21] MEDS ORDERED: ACETAMINOPHEN 325 MG TABLET PO PRN (21:00)
[2021-11-21] MEDS ORDERED: SODIUM CHLORIDE 0.9% 1,000 ML IV ONE (21:00)
[2021-11-21] MEDS ORDERED: MAGNESIUM HYDROXIDE SUSPENSION 30 ML UDCUP PO PRN (21:00)
[2021-11-21] MEDS: PANTOPRAZOLE SODIUM 40 MG/VIAL IVP SCH (21:21)
[2021-11-22] MEDS: HEPARIN SODIUM,PORCINE 5,000 UNITS/ML VIAL SQ SCH ×4 (01:00→23:39)
[2021-11-22] MEDS: ONDANSETRON HCL 4 MG/2 ML VIAL IVP PRN (06:42)
[2021-11-22 09:05] VITALS: BP 150/86
[2021-11-22] MEDS: PANTOPRAZOLE SODIUM 40 MG/VIAL IVP SCH (09:08)
[2021-11-22 11:00] VITALS: BP 152/98
[2021-11-22 12:00] VITALS: BP 139/86
[2021-11-22] MEDS: NICOTINE 21 MG/24 HOUR PATCH TD SCH (14:02)
[2021-11-22 15:21] VITALS: BP 152/86
[2021-11-22 19:41] VITALS: BP 166/92
[2021-11-22] MEDS ORDERED: QUEtiapine FUMARATE 25 MG TABLET PO ONE (21:30)
[2021-11-23 00:13] VITALS: BP 134/76
[2021-11-23 05:10] VITALS: BP 136/68
[2021-11-23 07:11] VITALS: BP 154/80
[2021-11-23] MEDS: NICOTINE 21 MG/24 HOUR PATCH TD SCH (08:04)
[2021-11-23] MEDS: PANTOPRAZOLE SODIUM 40 MG/VIAL IVP SCH (08:04)
[2021-11-23] MEDS: HEPARIN SODIUM,PORCINE 5,000 UNITS/ML VIAL SQ SCH (08:05)
[2021-11-23 11:30] VITALS: BP 154/87
[2021-11-23] MEDS: ONDANSETRON HCL 4 MG/2 ML VIAL IVP PRN (11:40)
[2021-11-23 16:20] VITALS: BP 145/88
== END 2021-11-23 17:45 | disposition home or self-care (01) | DRG 917 ==
LOC: EMS 18:15 → 5S 11-22 06:43
PROVIDERS: ADMIT Internal Medicine; ATTEND Internal Medicine
DX: T40.2X1A Poisoning by other opioids, accidental (unintentional), initial encounter (principal); G92.8 Other toxic encephalopathy; F20.0 Paranoid schizophrenia; F19.10 Other psychoactive substance abuse, uncomplicated; Z20.822 Contact with and (suspected) exposure to COVID-19; E66.9 Obesity, unspecified; G24.01 Drug induced subacute dyskinesia; F10.129 Alcohol abuse with intoxication, unspecified; R00.0 Tachycardia, unspecified; F31.9 Bipolar disorder, unspecified; R09.02 Hypoxemia; F17.210 Nicotine dependence, cigarettes, uncomplicated; Y92.89 Other specified places as the place of occurrence of the external cause; Z68.36 Body mass index [BMI] 36.0-36.9, adult
CPT/HCPCS: 70450; 71045; 72125; 80053; 81001; 82550; 83735; 83880; 84100; 84484; 85025; 93005; 99291; C9113; G0480; J1644; J2310; J2405; J7030; J7060; 36415-L1; 36415-TC

== ENCOUNTER 2023-06-04 12:08 | Emergency (ER) | payer MEDICARE, OTHER ==
[~2023-06-04] VITALS: Ht 170.2 cm; Wt 90.9 kg
[2023-06-04 12:18] VITALS: BP 142/114; PULSE 109; RESP 16; TEMP 98.2
[2023-06-04 14:01] LABS: BASOPHILS % (AUTO) 0.7 % (0.0-2.0); EOSINOPHILS % (AUTO) 1.1 % (1.0-6.0); HEMATOCRIT 45.3 % (41-53); LYMPHOCYTES # (AUTO) 1.9 K/uL (1.0-4.8); LYMPHOCYTES % (AUTO) 23.9 % (22.0-44.0); MEAN CORPUSCULAR HEMOGLOBIN 31.5 pg (26.0-34.0); MEAN CORPUSCULAR HGB CONC 35.4 G/dL (31.0-37.0); MEAN CORPUSCULAR VOLUME 89 fL (80-100); MONOCYTES # (AUTO) 1.2 K/uL (0.1-1.0); MONOCYTES % (AUTO) 15.3 % (2.0-9.0); NEUTROPHILS # (AUTO) 4.6 K/uL (1.8-7.7); PLATELET COUNT (AUTO) 367 K/uL (150-450); RED BLOOD CELL COUNT(AUTO) 5.09 MIL/uL (4.50-5.90); RED CELL DISTRIBUTION WIDTH 13.7 % (11.5-14.5); WHITE BLOOD COUNT (AUTO) 7.8 K/uL (4.5-11.0)
[2023-06-04 14:09] LABS: ANION GAP 11 mmol/L (8-16); CALCIUM, TOTAL 9.8 mg/dL (8.8-10.5); CARBON DIOXIDE 28 mmol/L (22-29); CHLORIDE 101 mmol/L (98-107); CREATININE 1.03 mg/dL (0.60-1.30); GLOMERULAR FILTR. RATE CALC > 60 mL/min (>60); GLUCOSE,RANDOM 94 mg/dL (70-110); POTASSIUM 4.2 mmol/L (3.5-5.1); SODIUM SERUM 140 mmol/L (136-145); UREA NITROGEN, BLOOD 11 mg/dL (7-18)
[2023-06-04 14:24] LABS: ALANINE AMINOTRANSFERASE 26 U/L (12-78); ALBUMIN 4.8 g/dL (3.4-5.0); ALKALINE PHOSPHATASE 108 U/L (46-116); ASPARTATE AMINOTRANSFERASE 22 U/L (15-37); BILIRUBIN,TOTAL 0.3 mg/dL (0.1-1.0); TOTAL PROTEIN, SERUM 8.3 g/dL (6.4-8.2)
[2023-06-04 14:28] LABS: ALCOHOL, BLOOD (SERUM) < 3 mg/dL (0-10)
== END 2023-06-04 15:18 | disposition home or self-care (01) ==
LOC: EMS 12:08
DX: F25.9 Schizoaffective disorder, unspecified (principal); F31.9 Bipolar disorder, unspecified; F11.90 Opioid use, unspecified, uncomplicated; Z98.890 Other specified postprocedural states
CPT/HCPCS: 80053; 85025; 36415; 99283; G0480

== ENCOUNTER 2025-02-24 15:26 | Inpatient (IN) | payer MEDICARE, MEDICAID ==
[~2025-02-24] VITALS: Ht 170.2 cm; Wt 82.1 kg
[2025-02-24] MEDS ORDERED: CLON-595 PO (18:08)
[2025-02-24] MEDS ORDERED: OMEP-99 PO (18:08)
[2025-02-24] MEDS ORDERED: PROP10TA73 PO (18:08)
[2025-02-24] MEDS ORDERED: QUET100T PO (18:08)
[2025-02-24] MEDS ORDERED: BENZ2TAB84 PO (18:08)
[2025-02-24] MEDS ORDERED: DIVA-111 PO (18:08)
[2025-02-24] MEDS ORDERED: DIVA-112 PO (18:30)
[2025-02-24] MEDS ORDERED: HALO100V36 IM (18:30)
[2025-02-24] MEDS ORDERED: QUET200T PO (18:30)
[2025-02-24] MEDS ORDERED: OMEP40CA21 PO (18:30)
[2025-02-25] VITALS (8 sets, daily range): BP systolic 135–165; BP diastolic 79–135; PULSE 61–115; RESP 16–18; TEMP 97.9–98.7; O2SAT 95–99
[2025-02-25] MEDS ORDERED: INFLUENZA VIRUS VACCINE TVS (6MO+) 2025-26/PF 45 MCG/0.5 ML SYRINGE IM. ONE (06:00)
[2025-02-25] MEDS ORDERED: PNEUMOCOCCAL VACCINE POLYVALENT 0.5 ML SYRINGE [PPSV23] IM. ONE (06:00)
[2025-02-25] MEDS ORDERED: ALBUTEROL SULFATE HFA 90 MCG/PUFF 8 GM INHALER IH PRN (08:15)
[2025-02-25] MEDS ORDERED: MAGNESIUM HYDROXIDE SUSPENSION 30 ML UDCUP PO PRN (08:15)
[2025-02-25] MEDS ORDERED: OMEPRAZOLE 20 MG CAPSULE PO PRN (08:15)
[2025-02-25] MEDS ORDERED: LOPERAMIDE HCL 2 MG CAPSULE PO PRN (08:15)
[2025-02-25] MEDS ORDERED: BENZOCAINE/MENTHOL [CEPACOL] LOZENGE PO PRN (08:15)
[2025-02-25] MEDS ORDERED: PETROLATUM,WHITE 28 GM JELLY TP PRN (08:15)
[2025-02-25] MEDS ORDERED: MAG HYDROX/ALUMINUM HYD/SIMETH ES 30 ML SUSPENSION UDCUP PO PRN (08:15)
[2025-02-25] MEDS ORDERED: ONDANSETRON 4 MG TABLET PO PRN (08:15)
[2025-02-25 09:19] LABS: CHOL/HDL RATIO 4.5 (4.2-7.3); LDL CHOL (CALC.) 101.0 mg/dL (0-130)
[2025-02-25] MEDS: PROPRANOLOL HCL 10 MG TABLET PO SCH (09:51)
[2025-02-25] MEDS: ACETAMINOPHEN 325 MG TABLET PO PRN (12:02)
[2025-02-25] MEDS: ZOLPIDEM TARTRATE 10 MG TABLET PO PRN (21:40)
[2025-02-26 08:24] VITALS: BP 130/100; PULSE 73; RESP 17; TEMP 98; O2SAT 100
[2025-02-26 08:54] VITALS: BP 130/100; PULSE 73; RESP 17; TEMP 98; O2SAT 100
[2025-02-26] MEDS: BACITRACIN 28 GM OINTMENT TP PRN (09:46)
[2025-02-26 13:05] VITALS: BP 132/90; PULSE 69; RESP 18; TEMP 98.5; O2SAT 98
[2025-02-26] MEDS: TETRABENAZINE 12.5 MG TABLET PO SCH (16:26)
[2025-02-26 20:25] VITALS: BP 118/80; PULSE 75; RESP 18; TEMP 97.5; O2SAT 97
[2025-02-26 21:09] VITALS: BP 118/80; PULSE 75; RESP 18; TEMP 97.5; O2SAT 97
[2025-02-27 07:22] LABS: PLATELET COUNT (AUTO) 332 K/uL (150-450); RED BLOOD CELL COUNT(AUTO) 4.89 MIL/uL (4.50-5.90); RED CELL DISTRIBUTION WIDTH 13.8 % (11.5-14.5); WHITE BLOOD COUNT (AUTO) 4.5 K/uL (4.5-11.0)
[2025-02-27 08:48] VITALS: BP 108/75; PULSE 75; RESP 18; TEMP 98.1; O2SAT 96
[2025-02-27 08:53] VITALS: BP 108/75; PULSE 75; RESP 18; TEMP 98.1; O2SAT 96
[2025-02-27 09:22] LABS: BAND NEUTROPHILS % (MANUAL) 3 % (0-5); LYMPHOCYTES % (MANUAL) 37 % (22-44); MONOCYTES % (MANUAL) 4 % (2-9); RBC MORPHOLOGY COMMENT NORMAL RBC MORPH; SEGMENTED NEUTROPHILS % 56 % (40-70)
[2025-02-27 20:53] VITALS: BP 138/88; PULSE 82; RESP 18; TEMP 98.4; O2SAT 96
[2025-02-28 08:05] VITALS: BP 129/100; PULSE 80; RESP 18; TEMP 97.8; O2SAT 98
[2025-02-28 21:28] VITALS: BP 153/90; PULSE 76; RESP 17; TEMP 96.8; O2SAT 99
[2025-03-01] MEDS: MULTIVITAMINS WITH MINERALS, THERAPEUTIC TABLET PO SCH (10:02)
[2025-03-01 10:08] VITALS: BP 129/85; PULSE 89; RESP 18; TEMP 98.1; O2SAT 98
[2025-03-01 21:06] VITALS: BP 155/61; PULSE 73; RESP 18; TEMP 97.4; O2SAT 97
[2025-03-02 08:31] VITALS: PULSE 95; RESP 16; TEMP 97.2; O2SAT 100
[2025-03-02 22:01] VITALS: BP 159/95; PULSE 70; RESP 18; TEMP 98.4; O2SAT 97
[2025-03-03 09:35] VITALS: BP 129/81; PULSE 66; RESP 17; TEMP 97.8; O2SAT 96
[2025-03-03 20:32] VITALS: BP 143/95; PULSE 65; TEMP 97.1
[2025-03-04 10:15] VITALS: BP 124/57; PULSE 77; RESP 16; TEMP 98.8; O2SAT 96
[2025-03-04 20:08] VITALS: BP 108/69; PULSE 62; RESP 18; TEMP 97.3; O2SAT 97
[2025-03-05 09:52] VITALS: BP 118/70; PULSE 65; RESP 18; TEMP 98.3; O2SAT 97
[2025-03-05 18:18] VITALS: BP 120/62; PULSE 68; RESP 19; TEMP 97.9; O2SAT 97
[2025-03-05 20:30] VITALS: BP 148/62; PULSE 68; RESP 19; TEMP 98; O2SAT 98
[2025-03-06 16:10] VITALS: BP 132/70; PULSE 72; RESP 17; TEMP 97.3; O2SAT 96
[2025-03-06 19:51] VITALS: BP 135/79; PULSE 65; RESP 18; TEMP 97.9; O2SAT 99
[2025-03-06] MEDS: IBUPROFEN 600 MG TABLET PO PRN (19:51)
[2025-03-06 20:12] VITALS: BP 135/79; PULSE 62; RESP 18; TEMP 97.3; O2SAT 98
[2025-03-06 20:51] VITALS: O2SAT 98
[2025-03-07] MEDS: CARBIDOPA/LEVODOPA 25-100 MG TABLET PO SCH (08:54)
[2025-03-07 20:00] VITALS: BP 146/90; PULSE 80; RESP 19; TEMP 98; O2SAT 98
[2025-03-08 09:00] VITALS: BP 119/87; PULSE 67; RESP 17; TEMP 97.5
[2025-03-08 20:00] VITALS: BP 121/76; PULSE 72; RESP 18; TEMP 97.6; O2SAT 98
[2025-03-09 08:51] VITALS: BP 134/65; PULSE 70; RESP 18; TEMP 97.7; O2SAT 99
[2025-03-09 08:52] VITALS: BP 134/65; PULSE 72; RESP 18; TEMP 97.8; O2SAT 98
[2025-03-09 19:50] VITALS: BP 131/74; PULSE 76; RESP 18; TEMP 97.6; O2SAT 98
[2025-03-09 20:50] VITALS: RESP 18
[2025-03-10 09:34] VITALS: BP 109/95; PULSE 73; RESP 18; TEMP 98.4; O2SAT 95
[2025-03-11 10:57] VITALS: BP 115/95; PULSE 75; RESP 17; TEMP 98.7; O2SAT 97
[2025-03-11 21:15] VITALS: BP 125/84; PULSE 61; RESP 18; TEMP 98.3; O2SAT 98
[2025-03-12] MEDS: TETRABENAZINE 12.5 MG TABLET PO SCH (08:56)
[2025-03-12 10:26] VITALS: BP 136/74; PULSE 62; RESP 18; TEMP 99.1; O2SAT 99
[2025-03-12 11:26] VITALS: BP 132/71; PULSE 64; RESP 19; TEMP 98.2; O2SAT 98
[2025-03-12 12:14] VITALS: BP 136/74; PULSE 62; RESP 20; TEMP 99.1; O2SAT 98
[2025-03-12 20:45] VITALS: BP 133/74; PULSE 62; RESP 18; TEMP 98.6; O2SAT 98
[2025-03-13] VITALS (7 sets, daily range): BP systolic 121–131; BP diastolic 63–80; PULSE 70–98; RESP 16–18; TEMP 97.8–98; O2SAT 97–99
[2025-03-14 01:10] VITALS: BP 133/86; PULSE 87; RESP 18; TEMP 97.8
[2025-03-14 08:41] VITALS: BP 131/71; PULSE 69; RESP 18; TEMP 98.3; O2SAT 96
[2025-03-14 09:01] VITALS: BP 131/71; PULSE 69; RESP 18; TEMP 98.3; O2SAT 96
[2025-03-14 18:05] VITALS: BP 139/74; PULSE 74; RESP 19; TEMP 97.9; O2SAT 97
[2025-03-14 20:36] VITALS: BP 124/77; PULSE 79; RESP 17; TEMP 97.9; O2SAT 98
[2025-03-14 20:38] VITALS: BP 124/77; PULSE 79; RESP 18; TEMP 97.6; O2SAT 95
[2025-03-15 10:08] VITALS: BP 134/90
[2025-03-15] MEDS: DOCUSATE SODIUM 100 MG CAPSULE PO PRN (17:53)
[2025-03-15 20:00] VITALS: BP 131/86; PULSE 83; RESP 18; TEMP 97.5; O2SAT 99
[2025-03-15 22:51] VITALS: BP 128/81; PULSE 84; RESP 19; TEMP 97.6; O2SAT 96
[2025-03-16 08:35] VITALS: BP 123/77; PULSE 60; RESP 18; TEMP 98; O2SAT 98
== END 2025-03-16 17:10 | disposition home or self-care (01) | DRG 885 ==
LOC: B2X 23:54 → 3EI 02-26 12:19 → 3EX 02-27 10:20
PROVIDERS: ADMIT Psychiatry & Neurology Psychiatry; ATTEND Psychiatry & Neurology Psychiatry
DX: F20.9 Schizophrenia, unspecified (principal); J44.9 Chronic obstructive pulmonary disease, unspecified; I10 Essential (primary) hypertension; E78.5 Hyperlipidemia, unspecified; K59.00 Constipation, unspecified; K21.9 Gastro-esophageal reflux disease without esophagitis; G47.00 Insomnia, unspecified; F41.9 Anxiety disorder, unspecified; G24.9 Dystonia, unspecified; R47.1 Dysarthria and anarthria; G25.71 Drug induced akathisia; Z72.0 Tobacco use; M19.90 Unspecified osteoarthritis, unspecified site
CPT/HCPCS: 70551; 80061; 83036; 84436; 84443; 85025; 86592; 90686; 90732; 92610; 97116; 97162; 97166; 97530; G0378

== ENCOUNTER 2025-02-24 21:30 | Emergency (ER) | payer MEDICARE, OTHER ==
[~2025-02-24] VITALS: Ht 170.2 cm; Wt 81.8 kg
[~2025-02-24 21:30] MED LIST changes: +BENZ2TAB84 PO; +CLON-595 PO; +DIVA-111 PO; +DIVA-112 PO; +HALO100V36 IM; +OMEP-99 PO; +OMEP40CA21 PO; +QUET100T PO
[2025-02-24 22:20] LABS: PLATELET COUNT (AUTO) 301 K/uL (150-450); RED BLOOD CELL COUNT(AUTO) 4.39 MIL/uL (4.50-5.90); RED CELL DISTRIBUTION WIDTH 13.6 % (11.5-14.5); WHITE BLOOD COUNT (AUTO) 3.7 K/uL (4.5-11.0)
[2025-02-24 22:22] LABS: CALCIUM, TOTAL 8.6 mg/dL (8.8-10.5); CREATININE 0.76 mg/dL (0.60-1.30); GLOMERULAR FILTR. RATE CALC > 60 mL/min (>60); GLUCOSE,RANDOM 96 mg/dL (70-110); SODIUM SERUM 144 mmol/L (136-145); UREA NITROGEN, BLOOD 11 mg/dL (7-18)
[2025-02-24 22:25] LABS: ASPARTATE AMINOTRANSFERASE 19 U/L (15-37); CREATINE KINASE, TOTAL ONLY 245 U/L (39-308); TOTAL PROTEIN, SERUM 6.7 g/dL (6.4-8.2)
[2025-02-24 22:27] LABS: ALCOHOL, BLOOD (SERUM) < 3 mg/dL (0-10)
[2025-02-24 22:29] VITALS: BP 154/91; PULSE 82; RESP 20; TEMP 98.105288; O2SAT 96
[2025-02-24 22:30] LABS: TROPONIN I-HIGH SENSITIVITY 5 ng/L (<76)
[2025-02-24 22:35] LABS: COVID AG,FIA SOURCE NASAL SWAB
[2025-02-24 22:54] LABS: SARS-COV2 (COVID) ANTIGEN,FIA Negative (Negative)
[2025-02-24] MEDS: BACITRACIN 28 GM OINTMENT TP ONE (23:18)
[2025-02-24] MEDS: PERTUSS(ACELL),DIPH,TET/PF 0.5 ML SYRINGE [ADULT] IM. ONE (23:19)
== END 2025-02-25 00:01 | disposition home or self-care (01) ==
LOC: EMS 21:30
DX: S01.81XA Laceration without foreign body of other part of head, initial encounter (principal); S81.812A Laceration without foreign body, left lower leg, initial encounter; F20.9 Schizophrenia, unspecified; F17.210 Nicotine dependence, cigarettes, uncomplicated; Z79.899 Other long term (current) drug therapy; Z20.822 Contact with and (suspected) exposure to COVID-19; Z98.890 Other specified postprocedural states; W19.XXXA Unspecified fall, initial encounter; Y93.89 Activity, other specified; Y92.89 Other specified places as the place of occurrence of the external cause; Y99.8 Other external cause status
CPT/HCPCS: 70450; 71045; 72125; 80048; 80076; 82140; 82550; 83880; 84484; 85025; 85610; 85730; 90471; 90715; 93005; 99285; G0480; 36415-L1; 36415-TC